=== PATIENT | female | born 1980 | race Caucasian/White ===

== ENCOUNTER → 2021-09-22 09:12 | Outpatient (BNVA) | payer MEDICAID, SELFPAY | PROVIDERS: Family Provider Nurse Practitioner Family; Visit Provider Nurse Practitioner Family | DX: J40 Bronchitis, not specified as acute or chronic (principal); R05.9 Cough, unspecified; Z11.52 Encounter for screening for COVID-19 | CPT/HCPCS: 87635 ==

== ENCOUNTER → 2022-07-24 12:14 | Outpatient (BNVA) | payer MEDICAID, SELFPAY | PROVIDERS: Family Provider Nurse Practitioner Family; Visit Provider Nurse Practitioner Family | DX: F32.A Depression, unspecified (principal); F41.9 Anxiety disorder, unspecified; J44.9 Chronic obstructive pulmonary disease, unspecified | CPT/HCPCS: 80053 ==

== ENCOUNTER 2022-10-27 14:17 | Outpatient (CLI) | payer MEDICAID, SELFPAY ==
--- NOTE | 2022-10-27 14:00 | MM_ITS ---
WS: [id number] BILATERAL 3D TOMOSYNTHESIS DIGITAL DIAGNOSTIC MAMMOGRAPHY WITH CAD CLINICAL INFORMATION: LUMP IN LEFT BREAST HISTORY: LEFT breast pain and soreness with LEFT breast lump. COMPARISON: None. TECHNIQUE: Bilateral CC, MLO, and ML views. FINDINGS: The breasts are composed of heterogeneous fibroglandular density, which can limit the detection of sm all underlying mass lesions. Heterogeneous breast tissue more prominent LEFT breast. Small ovoid lesi on in the area of palpable concern. Ultrasound described below. No suspicious abnormalities RIGHT breast. ULTRASOUND BREAST LEFT TECHNIQUE: Ultrasound left breast focused area of concern. CLINICAL INFORMATION: LUMP IN LEFT BREAST FINDINGS: Ultrasound LEFT breast at the 8:00 position in the area of palpable concern. In the area of palpable concern, there is a solid well-circumscribed hypoechoic ovoid nodule measuring approximately 5.1 x 8. 4 x 3.4 mm. This may represent a fibroadenoma in a patient this age but indeterminant and recommend f urther evaluation with ultrasound-guided biopsy. MM/[place] [id number] IMPRESSION: BI-RADS: 4-Suspicious Finding-Biopsy Should Be Considered FOLLOW UP: US Guided Biopsy Recommended Recommend ultrasound-guided biopsy LEFT breast lesion.
--- NOTE | 2022-10-27 14:30 | US_ITS ---
WS: [id number] BILATERAL 3D TOMOSYNTHESIS DIGITAL DIAGNOSTIC MAMMOGRAPHY WITH CAD CLINICAL INFORMATION: LUMP IN LEFT BREAST HISTORY: LEFT breast pain and soreness with LEFT breast lump. COMPARISON: None. TECHNIQUE: Bilateral CC, MLO, and ML views. FINDINGS: The breasts are composed of heterogeneous fibroglandular density, which can limit the detection of sm all underlying mass lesions. Heterogeneous breast tissue more prominent LEFT breast. Small ovoid lesi on in the area of palpable concern. Ultrasound described below. No suspicious abnormalities RIGHT breast. ULTRASOUND BREAST LEFT TECHNIQUE: Ultrasound left breast focused area of concern. CLINICAL INFORMATION: LUMP IN LEFT BREAST FINDINGS: Ultrasound LEFT breast at the 8:00 position in the area of palpable concern. In the area of palpable concern, there is a solid well-circumscribed hypoechoic ovoid nodule measuring approximately 5.1 x 8. 4 x 3.4 mm. This may represent a fibroadenoma in a patient this age but indeterminant and recommend f urther evaluation with ultrasound-guided biopsy. US/US breast LT limited* [id number] IMPRESSION: BI-RADS: 4-Suspicious Finding-Biopsy Should Be Considered FOLLOW UP: US Guided Biopsy Recommended Recommend ultrasound-guided biopsy LEFT breast lesion.
== END 2022-10-27 14:18 | disposition home or self-care (01) ==
LOC: RAD 14:21
PROVIDERS: PCP Nurse Practitioner Family; Visit Provider Nurse Practitioner Family
DX: N63.24 Unspecified lump in the left breast, lower inner quadrant (principal)
CPT/HCPCS: 76642; 77062; G0279

== ENCOUNTER 2022-11-23 12:59 | Outpatient (CLI) | payer MEDICAID, SELFPAY ==
--- NOTE | 2022-11-23 13:45 | US_ITS ---
WS: [id number] ULTRASOUND LEFT BREAST HISTORY: lump of left breast COMPARISON: 10/27/2022 TECHNIQUE: 2-D and Doppler. Previously described LEFT breast mass at 8:00 is not identified with certainty on today's ultrasound. Patient presented for possible LEFT breast biopsy. The mass is not identified with certainty. Popeye rivas was also unable to palpate this nodule today. No biopsy will be performed. This was explained in de tail to the patient. US/US breast LT limited* [id number] IMPRESSION: BI-RADS: 3-Probably Benign FOLLOW-UP: 6 Month Follow-up Recommend diagnostic LEFT mammogram follow-up in 6 months and possible ultrasou nd. Biopsy not performed today as this LEFT breast mass was not reproducible.
== END 2022-11-23 13:00 | disposition home or self-care (01) ==
LOC: RAD 13:05
PROVIDERS: PCP Nurse Practitioner Family; Visit Provider Nurse Practitioner Family
DX: N63.24 Unspecified lump in the left breast, lower inner quadrant (principal)
CPT/HCPCS: 76642

== ENCOUNTER → 2022-12-04 10:04 | Outpatient (BNVA) | payer MEDICAID, SELFPAY | PROVIDERS: PCP Nurse Practitioner Family; Visit Provider Nurse Practitioner Family | DX: F32.A Depression, unspecified (principal); J44.9 Chronic obstructive pulmonary disease, unspecified; F41.9 Anxiety disorder, unspecified | CPT/HCPCS: 80053; 80061; 85025 ==

== ENCOUNTER 2023-01-20 08:18 | Inpatient (IN) | payer MEDICAID, SELFPAY ==
[2023-01-20 08:28] VITALS: BP 127/72; PULSE 89; RESP 18; TEMP 36.8; O2SAT 99
--- NOTE | 2023-01-20 08:31 | ED.C_ITS ---
HPI - Psych General: Chief Complaint: Psychiatric Symptoms Stated Complaint: 96 hour hold Time Seen by Provider: 01/20/23 08:24 Source: patient Mode of arrival: EMS Limitations: no limitations History of Present Illness: Patient is a 42-year-old female who presents to ED today on a 96-hour hold. According to hold paperwork filed by patient's as well as her [id number] and employer, she has made threats of wanting to kill herself and has stated she is having auditory hallucinations. Affidavit states that she has become very explosive and hostile at work often times accusing her coworkers of sleeping with her , cannot seem to focus on tasks, and is very hyperactive, they worry she was under the influence of drugs. Patient does state she has relapsed on drugs. She denies all accusations on the affidavits. complaint: other (96 hour hold) Relieving factors: none Exacerbating factors: other (drug use) Context: recent drug abuse Associated symptoms: Reports depression; Deny auditory hallucinations, visual hallucinations, homicidal ideation or suicidal ideation Treatments prior to arrival: placed on mental health hold Review of Systems Const: Denies: fever(s) or chills Card: Denies: chest pain, palpitations, lightheadedness or syncope Resp: Denies: dyspnea GI: Denies: abdominal pain, nausea, vomiting or diarrhea Skin/Breast: Denies: rash Neuro: Denies: headache(s) Psych: Reports: anxiety and depression; Denies: paranoia, visual hallucinations, auditory hallucinations, suicidal ideation or homicidal ideation [facility] ED PFSH: Medical History Cough Social History Smoking and tobacco status: never smoked Physical Exam Const: COMMON NORMALS: no acute distress, patient oriented x3, alert and well nourished GENERAL APPEARANCE: cooperative Resp: COMMON NORMALS: normal respiratory effort and clear to auscultation bilaterally AUSCULTATION: clear to auscultation bilaterally Cardio: COMMON NORMALS: regular rate and regular rhythm RATE: regular rate RHYTHM: regular rhythm Neuro: MAX COMA SCALE: document GCS findings Max coma scale eye opening: Spontaneous Bishop coma scale verbal response: Orientated Bishop coma scale motor response: Obey commands Bishop coma scale total score: 15 COMMON NORMALS: patient oriented x3 SENSORIUM/ORIENTATION: Yes alert Psych: COMMON NORMALS: mental status grossly normal, Normal thought process present, cooperative, normal affect, speech normal, denies hallucinations, denies homicidal ideation and denies suicidal ideation APPEARANCE: Yes grossly normal ATTITUDE: Yes agitated ACTIVITY/MOTOR BEHAVIOR: Yes appropriate eye contact and No psychomotor agitation SPEECH: Yes normal speech MOOD & AFFECT: Yes anxious THOUGHT PROCESS: Normal thought process present THOUGHT CONTENT: Yes Normal thought content present ATTENTION/CONCENTRATION: Yes attention grossly intact and Yes concentration grossly intact MEMORY/COGNITION: Yes memory grossly intact and Yes cognition grossly intact INSIGHT: Limited insight present (Psych) JUDGEMENT: Fair judgement present (Psych) Course Consultations: Consultation #1: Dr. Belcher-accepts to NPU Vital Signs: Vital signs: Vital Signs Temperature 97.9 F 01/20/23 10:28 Pulse Rate 64 01/20/23 10:28 Respiratory Rate 16 01/20/23 10:28 Blood Pressure 110/69 01/20/23 10:28 Pulse Oximetry 98 01/20/23 10:28 Oxygen Delivery Me thod Room Air 01/20/23 10:28 MDM - Psych Medical Decision Making Patient will be admitted to NPU to Dr. Belcher. She is on a 96-hour hold. Lab Data 01/20/23 09:00 01/20/23 09:00 Laboratory Results WBC 7.6 10^3/uL (4.0-10.0) 01/20/23 09:00 RBC 3.76 10^6/uL (4.1-5.3) L 01/20/23 09:00 Hgb 11.4 g/dL (11.5-15.3) L 01/20/23 09:00 Hct 35.6 % (37.0-47.0) L 01/20/23 09:00 MCV 94.7 fl (81-99) 01/20/23 09:00 MCH 30.3 pg (28.0-34.0) 01/20/23 09:00 MCHC 32.0 g/dL (30.0-36.0) 01/20/23 09:00 RDW 12.7 % (12.1-15.1) 01/20/23 09:00 Plt Count 252 10^3/cmm (130-400) 01/20/23 09:00 MPV 8.9 fL (7.4-10.4) 01/20/23 09:00 Neut % (Auto) 70.0 % 01/20/23 09:00 Lymph % (Auto) 15.5 % 01/20/23 09:00 [place] % (Auto) 9.3 % 01/20/23 09:00 Eos % (Auto) 4.6 % 01/20/23 09:00 Baso % (Auto) 0.5 % 01/20/23 09:00 Neut # (Auto) 5.34 10^3/uL (1.8-7.7) 01/20/23 09:00 Lymph # (Auto) 1.2 10^3/uL (0.8-4.8) 01/20/23 09:00 [place] # (Auto) 0.7 10^3/uL (0.2-0.9) 01/20/23 09:00 Eos # (Auto) 0.4 10^3/uL (0.0-0.8) 01/20/23 09:00 Baso # (Auto) 0.0 10^3/uL (0.0-0.1) 01/20/23 09:00 Nucleated RBC % (auto) 0 % 01/20/23 09:00 Nucleated RBCs # 0.0 /100WBC 01/20/23 09:00 Sodium 138 mmol/L (136-145) 01/20/23 09:00 Potassium 3.6 mmol/L (3.5-5.1) 01/20/23 09:00 Chloride 103 mmol/L (98-107) 01/20/23 09:00 Carbon Dioxide 24 mmol/L (22-29) 01/20/23 09:00 Anion Gap 14.6 (5-19) 01/20/23 09:00 BUN 13 mg/dL (6-20) 01/20/23 09:00 Creatinine 0.8 mg/dL (0.5-0.9) 01/20/23 09:00 GFR Calculation 79.4 mL/min (90-130) L 01/20/23 09:00 Glucose 91 mg/dL (65-115) 01/20/23 09:00 Calculated Osmolality 286 mOsm/kg (285-295) 01/20/23 09:00 Calcium 9.1 mg/dL (8.5-10.5) 01/20/23 09:00 Total Bilirubin 0.2 mg/dL (0.15-1.2) 01/20/23 09:00 AST 22 U/L (0-32) 01/20/23 09:00 ALT 21 U/L (0-33) 01/20/23 09:00 Alkaline Phosphatase 64 U/L (35-105) 01/20/23 09:00 Total Protein 6.5 g/dL (6.6-8.7) L 01/20/23 09:00 Albumin 3.8 g/dL (3.5-5.2) 01/20/23 09:00 Globulin 2.7 g/dL (1.3-4.6) 01/20/23 09:00 HCG, Qual Negative (Negative) 01/20/23 09:00 Salicylates < 0.3 mg/dL (3-10) L 01/20/23 09:00 Acetaminophen < 5.0 ug/mL (10-30) L 01/20/23 09:00 Ethyl Alcohol < 10 mg/dL (0-10) 01/20/23 09:00 Discharge Plan Discharge Patient Disposition: Admitted As Inpatient Admit Provider: Kody Belcher Clinical Impression: Involuntary commitment, Suicidal ideation, Methamphetamine abuse Condition: Stable Coding Level of Care Code ED [employer] for [employer] Rmairez
[2023-01-20 09:06] LABS: Basophils % 0.5 %; Eosinophils # 0.4 10^3/uL (0.0-0.8); Eosinophils % 4.6 %; Hematocrit 35.6 % (37.0-47.0); Hemoglobin 11.4 g/dL (11.5-15.3); Lymphocytes # 1.2 10^3/uL (0.8-4.8); Lymphocytes % 15.5 %; Mean Corpuscular Hemoglobin 30.3 pg (28.0-34.0); Mean Corpuscular Volume 94.7 fl (81-99); Mean Platelet Volume 8.9 fL (7.4-10.4); Monocytes # 0.7 10^3/uL (0.2-0.9); Monocytes % 9.3 %; Neutrophils # 5.34 10^3/uL (1.8-7.7); Nucleated Red Blood Cells % 0 %; Platelet Count 252 10^3/cmm (130-400); Red Blood Count 3.76 10^6/uL (4.1-5.3); Red Cell Distribution Width 12.7 % (12.1-15.1); White Blood Count 7.6 10^3/uL (4.0-10.0)
[2023-01-20 09:19] LABS: HCG, Serum Qual Negative (Negative)
--- NOTE | 2023-01-20 09:19 | PC.NURSE ---
96 hr rights reviewed with patient. Patient agitated with decision that was made for a 96 hr to be ordered and placed. Security and myself reviewed rights multiple times with patient, but patient was not willing to listen to conversation at that point. Patient escalated, but was able to be verbally talked down by HS. Patient more willing to hear conversation after about 30 mins of consistent deescalation. Rights page left at bedside with patient.
[2023-01-20 09:26] LABS: Alanine Aminotransferase 21 U/L (0-33); Albumin Level 3.8 g/dL (3.5-5.2); Alkaline Phosphatase 64 U/L (35-105); Anion Gap 14.6 (5-19); Aspartate Amino Transferase 22 U/L (0-32); Blood Urea Nitrogen 13 mg/dL (6-20); Calcium 9.1 mg/dL (8.5-10.5); Carbon Dioxide 24 mmol/L (22-29); Chloride 103 mmol/L (98-107); Globulin 2.7 g/dL (1.3-4.6); Glomerular Filtration Rate 79.4 mL/min (90-130); Glucose 91 mg/dL (65-115); Osmolality Calculated 286 mOsm/kg (285-295); Potassium 3.6 mmol/L (3.5-5.1); Sodium 138 mmol/L (136-145); Total Bilirubin 0.2 mg/dL (0.15-1.2); Total Protein 6.5 g/dL (6.6-8.7)
[2023-01-20 09:29] LABS: Acetaminophen < 5.0 ug/mL (10-30); Alcohol Level < 10 mg/dL (0-10); Salicylate < 0.3 mg/dL (3-10)
[2023-01-20 10:28] VITALS: BP 110/69; PULSE 64; RESP 16; TEMP 36.6; O2SAT 98
[2023-01-20 14:00] VITALS: BP 118/68; PULSE 78; RESP 16; TEMP 36.6; O2SAT 92
[2023-01-20] MEDS: OLANZapine 5 mg ODT PO (20:10)
[2023-01-20] MEDS: atorvastatin 40 mg Tablet 20 MG PO (20:10)
[2023-01-20] MEDS: hyDROXYzine 25 mg Capsule 50 MG PO (20:10)
[2023-01-20 22:00] VITALS: RESP 17
[2023-01-21 06:00] VITALS: RESP 16
[2023-01-21] MEDS: escitalopram 10 mg Tablet 20 MG PO (09:14)
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
[2023-01-21 14:00] VITALS: BP 98/57; PULSE 71; RESP 17; TEMP 36.8; O2SAT 97
[2023-01-21 16:52] LABS: Amphetamines Screen Urine Positive (Negative); Barbiturates Screen Urine Negative (Negative); Benzodiazepines Screen Urine Negative (Negative); Cocaine Screen Urine Negative (Negative); Opiate Screen Urine Negative (Negative); PCP Screen Urine Negative (Negative); THC Screen Urine Positive (Negative)
[2023-01-21 19:38] VITALS: BP 118/62; PULSE 84; RESP 16; TEMP 36.7; O2SAT 96
[2023-01-21] MEDS: atorvastatin 40 mg Tablet 20 MG PO (21:46)
[2023-01-22 06:00] VITALS: BP 117/66; PULSE 56; RESP 16; TEMP 36.6; O2SAT 97
[2023-01-22] MEDS: escitalopram 10 mg Tablet 20 MG PO (08:34)
[2023-01-22 14:00] VITALS: BP 90/52; PULSE 61; RESP 16; TEMP 36.7; O2SAT 97
--- NOTE | 2023-01-22 14:06 | P.NPUPN_ITS ---
Subjective NPU Subjective: Patient presented today reporting her depression and anxiety were still challenging. We had a long discussion about her drug use and she was somewhat more able to openly explore its impact but continued to have some focus on her and the role that relationship plays in her presentation. We discussed the risk benefits and alternatives of increasing her Lexapro to 30 mg in the morning and considering other medications for anxiety based on a review of her chart. Mental Status Exam MSE Comments: This is an underweight white female in hospital scrubs with improving grooming and eye contact. No abnormal movements except for mild psychomotor retardation. Cooperative with exam and mild distress. Speech was decreased rate and volume. Mood described as a little better but still anxious. Affect less subdued. Thought process organized. Thought content: Patient denied suicidal or homicidal ideation, there were no delusions reported or noted, though she does report that she can get delusional and psychotic when she is using drugs. She denied auditory or visual hallucinations currently. Attention and concentration were mostly intact and memory was mostly reliable but none were formally tested. She is alert and oriented x3. Insight, judgment and impulse control are limite d. Vitals/I&O/Wt Last Vital Signs Temp 98.0 F 01/22/23 14:00 Pulse 61 01/22/23 14:00 Resp 16 01/22/23 14:00 BP 90/52 01/22/23 14:00 Pulse Ox 97 01/22/23 14:00 O2 Del Method Room Air 01/22/23 06:00 Data NPU 01/20/23 09:00 01/20/23 09:00 A&P Assessment and plan (1) Involuntary commitment: (2) Suicidal ideation: (3) Methamphetamine use disorder, severe: (4) Major depressive disorder: (5) CARMEN (generalized anxiety disorder): Plan This is a 42-year-old white female with no reported history of mental health issues prior to some significant medical issues including lymphoma with subsequent treatment after which there is a history of psychological distress and symptoms most recently presenting with clear psychosis. 1.? Continue current medication.? Increase Lexapro to 30 mg p.o. every morning and consider adding BuSpar or Neurontin for anxiety as well. 2.? Continue every 15 minute checks for safety. 3.? Encourage individual, group and milieu therapy. 4. Encourage sober living treatment after discharge at the highest level of care to which she is willing to commit. Involuntary Hold Information 96 Hour Hold: 96 Hour Involuntary Admission: Yes 96 Hour Hold Ending Date: 01/26/23 96 Hour Hold Ending Time: 00:01 Attestations NPU Medical Necessity Statement*: Inpatient hospitalization is medically necessary and the clinically appropriate intervention at this time. We will monitor medications and make changes as indicated. Likely length of stay 2-4 days. Coding Level of Care Code Acute Code for g Fwd Diagnoses Involuntary commitment Z04.6 Suicidal ideation R45.851 Methamphetamine use disorder, severe F15.20 Major depressive disorder F32.9 CARMEN (generalized anxiety disorder) F41.1
[2023-01-22 20:50] VITALS: BP 102/60
[2023-01-22 20:53] VITALS: RESP 18
[2023-01-22] MEDS: atorvastatin 40 mg Tablet 20 MG PO (21:11)
[2023-01-22] MEDS: hyDROXYzine 25 mg Capsule 50 MG PO (21:12)
[2023-01-23 06:00] VITALS: BP 104/56; PULSE 57; RESP 16; TEMP 36.3; O2SAT 97
[2023-01-23] MEDS: escitalopram 10 mg Tablet 30 MG PO (08:34)
[2023-01-23 14:00] VITALS: BP 97/68; PULSE 79; RESP 16; TEMP 36.7; O2SAT 96
--- NOTE | 2023-01-23 17:41 | W.PM.NPUPNS ---
Subjective NPU Subjective: Patient presents today reporting that she is doing better. She reports that she is tolerating the increase in the Lexapro. She reports that she and her have been speaking but that his expectation is that she will do some of additional treatment and she denies being open to that plan. We discussed that she seems to be more focused on the conflict with her and how that plays out than her recovery but she reports being tired of being forced into doing things she does not want to do. We discussed discharge in the next 48 hours. Mental Status Exam MSE Comments: This is an underweight white female in hospital scrubs with improving grooming and eye contact. No abnormal movements except for mild psychomotor retardation. Cooperative with exam and mild distress. Speech was decreased rate and volume b. Ut improving mood described as a little better. Affect less subdued. Thought process organized. Thought content: Patient denied suicidal or homicidal ideation, there were no delusions reported or noted, though she does report that she can get delusional and psychotic when she is using drugs. She denied auditory or visual hallucinations currently. Attention and concentration were mostly intact and memory was mostly reliable but none were formally tested. She is alert and oriented x3. Insight, judgment and impulse control are limited. Vitals/I&O/Wt Last Vital Signs Temp 98.1 F 01/23/23 14:00 Pulse 79 01/23/23 14:00 Resp 18 01/23/23 19:52 BP 97/68 01/23/23 14:00 Pulse Ox 96 01/23/23 14:00 O2 Del Method Room Air 01/23/23 14:00 Data NPU 01/20/23 09:00 01/20/23 09:00 A&P Assessment and plan (1) Involuntary commitment: (2) Suicidal ideation: (3) Methamphetamine use disorder, severe: (4) Major depressive disorder: (5) CARMEN (generalized anxiety disorder): Plan This is a 42-year-old white female with no reported history of mental health issues prior to some significant medical issues including lymphoma with subsequent treatment after which there is a history of psychological distress and symptoms most recently presenting with clear psychosis. 1.? Continue current medication.? Increased Lexapro to 30 mg p.o. every morning and consider adding BuSpar or Neurontin for anxiety as well. 2.? Continue every 15 minute checks for safety. 3.? Encourage individual, group and milieu therapy. 4. Encourage sober living treatment after discharge at the highest level of care to which she is willing to commit. Involuntary Hold Information 96 Hour Hold: 96 Hour Involuntary Admission: Yes 96 Hour Hold Ending Date: 01/26/23 96 Hour Hold Ending Time: 00:01 Attestations NPU Medical Necessity Statement*: Inpatient hospitalization is medically necessary and the clinically appropriate intervention at this time. We will monitor medications and make changes as indicated. Likely length of stay 1-2 days. Coding Level of Care Code Acute Code for Chg Fwd Diagnoses Involuntary commitment Z04.6 Suicidal ideation R45.851 Methamphetamine use disorder, severe F15.20 Major depressive disorder F32.9 CARMEN (generalized anxiety disorder) F41.1
[2023-01-23 19:52] VITALS: RESP 18
[2023-01-23] MEDS: atorvastatin 40 mg Tablet 20 MG PO (20:33)
[2023-01-24 06:00] VITALS: RESP 15
[2023-01-24] MEDS: escitalopram 10 mg Tablet 30 MG PO (10:45)
[2023-01-24 13:25] VITALS: BP 109/64; PULSE 73; RESP 16; TEMP 36.7; O2SAT 99
--- NOTE | 2023-01-24 17:33 | W.PM.NPUPNS ---
Subjective NPU Subjective: Presented today reporting that she is doing fine. She continued to be resistant to proceeding with any inpatient treatment. She continues to be ambivalent and have challenges related to her . She agreed that she would continue taking the medication as she reports the changes have been effective. We discussed discharge tomorrow. Mental Status Exam MSE Comments: This is an underweight white female in hospital scrubs with improving grooming and eye contact. No abnormal movements except for mild psychomotor retardation. Cooperative with exam and mild distress. Speech was decreased rate and volume but improving mood described as a little better. Affect less subdued. Thought process organized. Thought content: Patient denied suicidal or homicidal ideation, there were no delusions reported or noted, though she does report that she can get delusional and psychotic when she is using drugs. She denied auditory or visual hallucinations currently. Attention and concentration were mostly intact and memory was mostly reliable but none were formally tested. She is alert and oriented x3. Insight, judgment and impulse control are limited. Vitals/I&O/Wt Last Vital Signs Temp 98.1 F 01/24/23 13:25 Pulse 73 01/24/23 13:25 Resp 16 01/24/23 13:25 BP 109/64 01/24/23 13:25 Pulse Ox 99 01/24/23 13:25 O2 Del Method Room Air 01/24/23 13:25 Data NPU 01/20/23 09:00 01/20/23 09:00 A&P Assessment and plan (1) Involuntary commitment: (2) Suicidal ideation: (3) Methamphetamine use disorder, severe: (4) Major depressive disorder: (5) CARMEN (generalized anxiety disorder): Plan This is a 42-year-old white female with no reported history of mental health issues prior to some significant medical issues including lymphoma with subsequent treatment after which there is a history of psychological distress and symptoms most recently presenting with clear psychosis. 1.? Continue current medication.? Increased Lexapro to 30 mg p.o. every morning and consider adding BuSpar or Neurontin for anxiety as well. 2.? Continue every 15 minute checks for safety. 3.? Encourage individual, group and milieu therapy. 4. Encourage sober living treatment after discharge at the highest level of care to which she is willing to commit. Involuntary Hold Information 96 Hour Hold: 96 Hour Involuntary Admission: Yes 96 Hour Hold Ending Date: 01/26/23 96 Hour Hold Ending Time: 00:01 Attestations NPU Medical Necessity Statement*: Inpatient hospitalization is medically necessary and the clinically appropriate intervention at this time. We will monitor medications and make changes as indicated. Tentative discharge in the morning. Coding Level of Care Code Acute Code for Chg Fwd Diagnoses Involuntary commitment Z04.6 Suicidal ideation R45.851 Methamphetamine use disorder, severe F15.20 Major depressive disorder F32.9 CARMEN (generalized anxiety disorder) F41.1
[2023-01-24] MEDS: atorvastatin 40 mg Tablet 20 MG PO (20:07)
[2023-01-24 20:41] VITALS: BP 105/59; PULSE 98; RESP 17; TEMP 36.6; O2SAT 99
[2023-01-25 05:57] VITALS: RESP 16
[2023-01-25] MEDS: escitalopram 10 mg Tablet 30 MG PO (08:20)
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
[2023-01-25 11:19] VITALS: RESP 16
[2023-01-25 11:22] VITALS: BP 118/77; PULSE 75; RESP 16; TEMP 36.3; O2SAT 98
== END 2023-01-25 12:09 | disposition home or self-care (01) | DRG 897 ==
LOC: ER 08:31 → NP 09:51
PROVIDERS: Admitting Provider Psychiatry & Neurology Psychiatry; Emergency Provider Physician Assistant; PCP Nurse Practitioner Family; Visit Provider Psychiatry & Neurology Psychiatry
DX: F15.251 Other stimulant dependence with stimulant-induced psychotic disorder with hallucinations (principal); R45.851 Suicidal ideations; F17.290 Nicotine dependence, other tobacco product, uncomplicated; F19.90 Other psychoactive substance use, unspecified, uncomplicated; F10.90 Alcohol use, unspecified, uncomplicated; F41.1 Generalized anxiety disorder; F32.9 Major depressive disorder, single episode, unspecified
CPT/HCPCS: 36415; 80053; 80306; 80307; 84703; 85025; 97150; 97165; 99285

== ENCOUNTER 2023-03-20 09:53 | Outpatient (CLI) | payer MEDICAID, SELFPAY ==
--- NOTE | 2023-03-20 09:59 | MM_ITS ---
WS: [id number] LEFT DIGITAL TOMOSYNTHESIS MAMMOGRAPHY WITH CAD. LEFT breast ultrasound, limited HISTORY: abnormal mammogram, pain LEFT breast. COMPARISON: 10/27/2022 and 11/23/2022 Technique: CC, MLO and ML views. Spot compression LEFT CC. Breast composition: There are scattered areas of fibroglandular density. No significant residual abn ormality is noted within the LEFT breast. No mass or distortion. No nipple retraction. LEFT breast ultrasound, limited. No distortion or shadowing in the LEFT breast. No abnormality in the area of pain near 4-5 o'clock. The previously described vague hypoechoic area in the LEFT breast at 8:00, 1 cm from the nipple is re identified but may be normal fibroglandular tissue. We were unable to identify this area on a prior u ltrasound of 11/23/2022 when the patient presented for biopsy. This does appear to be still present al though blends in nearly completely with the adjacent soft tissues. There is no shadowing or suspiciou s finding. MM/[place] [id number] IMPRESSION: BI-RADS: 2-Benign FOLLOW UP: 6 Month Follow-up Recommend return for bilateral mammography and additional imaging follow-up of the LEFT breast at 8:00, 1 cm from the nipple. There are no suspicious findings for which biopsy should be performed at this time. No mass corresponding to th e area of pain.
== END 2023-03-20 09:54 | disposition home or self-care (01) ==
PROVIDERS: PCP Nurse Practitioner Family; Visit Provider Nurse Practitioner Family
DX: R92.8 Other abnormal and inconclusive findings on diagnostic imaging of breast (principal); N64.4 Mastodynia; N63.20 Unspecified lump in the left breast, unspecified quadrant
CPT/HCPCS: 76642; 77061; G0279

== ENCOUNTER → 2023-12-18 16:53 | Outpatient (BNVA) | payer MEDICAID, SELFPAY | PROVIDERS: PCP Nurse Practitioner Family; Visit Provider Nurse Practitioner Family | DX: M25.571 Pain in right ankle and joints of right foot (principal); L03.115 Cellulitis of right lower limb | CPT/HCPCS: 73610; 73630 ==

== ENCOUNTER → 2024-07-03 13:51 | Outpatient (BNVA) | payer MEDICAID, SELFPAY | PROVIDERS: PCP Nurse Practitioner; Visit Provider Nurse Practitioner | DX: Z12.4 Encounter for screening for malignant neoplasm of cervix (principal) | CPT/HCPCS: 88175 ==

== ENCOUNTER 2025-09-14 09:24 | Emergency (ER) | payer MEDICAID, SELFPAY ==
--- NOTE | 2025-09-14 09:28 | PC.NURSE ---
attempted to triage patient immediately, patient requested to go straight to the bathroom to urinate.
[2025-09-14 09:29] VITALS: BP 139/70; PULSE 65; RESP 18; TEMP 36.6; O2SAT 94
--- NOTE | 2025-09-14 09:37 | ED_ITS ---
HPI - General Adult General: Chief complaint: General Medical Stated complaint: drooping left side of face Time Seen by Provider: 09/14/25 09:27 Source: patient Mode of arrival: ambulatory Limitations: no limitations History of Present Illness: 45-year-old female states that yesterday she noticed she started to have a left- sided facial droop and was unable to shut her eye states that she felt she was drooling on the left side of her face as well. She denies any weakness denies any slurred speech denies any [place] walking denies any vision changes or headache. No history of Albarado's palsy in the past Related Data Previous Rx's ?Medication ?Instructions ?Recorded bupropion HCl 150 mg tablet,12 hr 150 mg PO BID 30 day s #60 tabs 01/23/24 sustained-release (Wellbutrin SR) buspirone 10 mg tablet 10 mg PO BID 30 days #60 tab s 01/23/24 albuterol sulfate 90 mcg/actuation 2 puff inhalation 6 XD PRN 03/10/24 aerosol inhaler (Ventolin HFA) shortness of breath or wheezing #8.5 grams prednisone 50 mg tablet 50 mg PO DAILY #5 tabs 09/14 valacyclovir 1 gram tablet 1,000 mg PO Q8H 7 days #21 tabs 09/14/25 Allergies Allergy/AdvReac Type Severity Reaction Status Date / Time No Known Allergies Allergy Verified 07/03/24 13:11 [facility] ED PFSH: Medical History Nicotine dependence age 18 cigarette and vape CARMEN (generalized anxiety disorder) Cough Surgical History History of bilateral tubal ligation 2017 History of section 4 Family History Mother Cancer Diabetes Father TIA (transient ischemic attack) Other Hypertension Social History Smoking and tobacco/nicotine status: current every day tobacco/nicotine user (vape) e-cigarettes Alcohol intake: former Former alcohol use details: Holidays not in 2 years Substance/Drug Use: former Date of last use: 11/2023 Former substance use details: Meth Adopted: No Caregiver/support person: Yes Lives independently: Yes Household members: spouse and children Housing: House Marital status: Number of children: 6 Number of grandchildren: 4 service: No Current occupational status: unemployed Pets and animals: Yes Do you think of yourself as: Straight/Heterosexual Current gender identity: Female Physical Exam Const: COMMON NORMALS: no acute distress, patient oriented x3 and healthy appearing HENMT: COMMON NORMALS: normocephalic and atraumatic HEAD & SCALP: normocephalic and atraumatic Eye: COMMON NORMALS: Equal, round and reactive pupils present and EOMs intact bilaterally PUPIL: Yes Equal, round and reactive pupils present Neck/C-Spine: COMMON NORMALS: full ROM and supple Chest: COMMONS NORMALS: normal inspection of the chest and normal palpation of entire chest wall Resp: COMMON NORMALS: normal respiratory effort Cardio: COMMON NORMALS: regular rate RATE: regular rate Extremity: COMMON NORMALS: normal to inspection and full ROM Neuro: COMMON NORMALS: patient oriented x3 and moves all extremities SPEECH: speech normal GAIT: Yes Normal gait present MOTOR EXAM: 5/5 motor strength present throughout Psych: COMMON NORMALS: mental status grossly normal, Normal thought process present and cooperative THOUGHT PROCESS: Normal thought process present Skin: COMMON NORMALS: no rashes or lesions noted and no wounds GENERAL SKIN EXAM: no rashes or lesions noted Course Vital Signs: Vital signs: Vital Signs Temperature 97.8 F 09/14/25 09:29 Pulse Rate 65 09/14/25 09:29 Respiratory Rate 18 09/14/25 09:29 Blood Pressure 139/70 09/14/25 09:29 Pulse Oximetry 94 09/14/25 09:29 Oxygen Delivery Me thod Room Air 09/14/25 09:29 MDM - General Adult Medical Decision Making Patient presents here with left-sided facial droop differential includes CVA, Albarado's palsy. 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 She has follow-up with PCP return if worsening she understands agrees to plan Medical Records I reviewed the patient's medical records. No radiology studies performed this visit Discharge Plan Discharge Patient Disposition: Home Clinical Impression: Albarado's palsy Condition: Stable Prescriptions: New prednisone 50 mg tablet 50 mg PO DAILY Qty: 5 0RF valacyclovir 1 gram tablet 1,000 mg PO Q8H 7 Days Qty: 21 0RF No Action buspirone 10 mg tablet 10 mg PO BID 30 Days Qty: 60 0RF bupropion HCl [Wellbutrin SR] 150 mg tablet sustained-release 12 hr 150 mg PO BID 30 Days Qty: 60 0RF albuterol sulfate [Ventolin HFA] 90 mcg/actuation HFA aerosol inhaler 2 puff inhalation 6XD PRN (Reason: shortness of breath or wheezing) Qty: 8.5 2RF Discharge Orders: Discharge ED (Routine); Ordered 09/14/25 Ordered By: Garcia Hernandez Referrals: Roseanne Williamson FNP-C [Primary Care Provider, [facility]] - 4-7 days Discharge Diet: Advance as tolerated Discharge Activity: Resume usual activity Patient Instructions: Albarado Palsy (ED) Print Language: Albanian Coding Level of Care Code ED Manager Pe for Paulo Ramirez NIH stroke score NIHSS Level Of Consciousness - 1a: 0 Level Of Consciousness Questions - 1b: Both Correct Level Of Consciousness Commands - 1c: Both Correct Best Gaze - 2: Normal Visual Colvin - 3: No Visual Loss Facial Palsy - 4: Partial Paralysis Motor Arm Right - 5: No Drift Motor Arm Left - 5: No Drift Motor Leg Right - 6: No Drift Motor Leg Left - 6: No Drift Limb Ataxia - 7: Absent Sensory - 8: Normal Best Language - 9: No Aphasia Dysarthia - 10: Normal Extinction And Inattention - 11: 0 Score Total Score: 2
[2025-09-14 09:54] VITALS: BP 108/48; PULSE 70; RESP 16; TEMP 36.6; O2SAT 100
== END 2025-09-14 09:56 | disposition home or self-care (01) ==
PROVIDERS: Emergency Provider Emergency Medicine; PCP Nurse Practitioner
DX: G51.0 Bell's palsy (principal); F17.290 Nicotine dependence, other tobacco product, uncomplicated
CPT/HCPCS: 99283